=== PATIENT | male | born 1955 | race Caucasian/White ===

== ENCOUNTER 2024-01-07 11:57 | Observation (INO) | payer OTHER ==
[2024-01-03 11:55] LABS: HEMATOCRIT 46.6 % (42-54); MEAN CORPUSCULAR HEMOGLOBIN 34.7 pg (27.0-33.0); MEAN CORPUSCULAR HGB CONC 33.9 g/dL (32.0-36.0); MEAN CORPUSCULAR VOLUME 102.4 fL (79-99); PLATELET COUNT (AUTO) 222 K/uL (130-400); RED BLOOD CELL COUNT(AUTO) 4.55 MIL/uL (4.50-6.20); WHITE BLOOD COUNT (AUTO) 9.2 K/uL (4.8-10.8)
[2024-01-03 12:02] LABS: APPEARANCE,URINE CLOUDY (CLEAR); BILIRUBIN,URINE NEGATIVE (NEGATIVE); COLOR,URINE LIGHT-YELLOW (YELLOW); GLUCOSE, URINE (UA) NEGATIVE (NEGATIVE); KETONES,URINE NEGATIVE (NEGATIVE); LEUKOCYTE ESTERASE ,URINE 500 Leu/uL (NEGATIVE); NITRATE,URINE NEGATIVE (NEGATIVE); OCCULT BLOOD,URINE MODERATE (NEGATIVE); PROTEIN,URINE 30 mg/dL (NEGATIVE); UROBILINOGEN,URINE 0.2 mg/dL (0.2-1.0)
[2024-01-03 12:08] LABS: INR <= 0.93 (0.85-1.15); PROTHROMBIN TIME 10.7 SEC (9.6-11.6)
[2024-01-03 12:09] LABS: PARTIAL THROMBOPLASTIN TIME 41.3 SEC (26.3-35.5)
[2024-01-03 12:17] LABS: ALBUMIN 3.9 g/dL (3.5-5.0); BILIRUBIN,TOTAL 0.5 mg/dL (0.2-1.0); POTASSIUM 3.7 mmol/L (3.5-5.1)
[2024-01-03 12:31] VITALS: BP 154/77; PULSE 79; RESP 19
[2024-01-03 12:32] LABS: ADD UA MICROSCOPIC YES
[2024-01-03 12:56] LABS: BAND NEUTROPHILS % (MANUAL) 1 % (0-2); BASOPHILS % (MANUAL) 1 % (0-2); EOSINOPHILS % (MANUAL) 2 % (1-6); LYMPHOCYTES % (MANUAL) 36 % (22-44); MAN.DIFF COMMENT-IMPRESSION MANUAL DIFFERENTIAL; MONOCYTES % (MANUAL) 6 % (2-9); PLATELET MORPHOLOGY COMMENT ADEQUATE; REACTIVE LYMPHOCYTES 2 % (0-0); SEGMENTED NEUTROPHILS % 52 % (40-70); TOTAL CELLS COUNTED 100
[2024-01-03 13:02] LABS: BACTERIA,URINE Rare /HPF (None Seen); RBC,URINE 26-50 /HPF (0-1); SQUAMOUS EPITHELIAL CELL,UR Rare /HPF (0-2)
[~2024-01-07] VITALS: Ht 167.6 cm; Wt 69.2 kg
[2024-01-07] VITALS (23 sets, daily range): BP systolic 110–185; BP diastolic 51–91; PULSE 62–94; RESP 15–20
[~2024-01-07 11:57] MED LIST: AMLO5TAB4 PO; DIPH-934 PO; ESCI20TA38 PO; MIRT-22 PO; NALT50TA6 PO; SPIR25TA6 PO; THIA100T75 PO; TOPI-97 PO; mvi PO; preservision PO
[2024-01-07] MEDS: ZOSYN 3.375GM+NS 50ML 50 ML ONE (13:00)
[2024-01-07] MEDS ORDERED: ROCURONIUM BROMIDE 10MG/1ML 5ML VL ONE (16:53)
[2024-01-07] MEDS ORDERED: FENTANYL CITRATE PF 50 MCG/1 ML 2ML VIAL ONE ×2 (16:53→16:54)
[2024-01-07] MEDS ORDERED: PROPOFOL 10 MG/ML 20ML VIAL IV ONE ×2 (16:53→17:27)
[2024-01-07] MEDS ORDERED: MIDAZOLAM HCL 1 MG/ML 2ML VIAL ONE (16:53)
[2024-01-07] MEDS ORDERED: IOHEXOL-350 50ML VIAL IV ONE (17:06)
[2024-01-07] MEDS: ZOSYN 3.375GM +NS 50ML IVPB ONE (17:15)
[2024-01-07] MEDS ORDERED: ONDANSETRON 4MG INJ ONE (17:40)
[2024-01-07] MEDS ORDERED: GLYCOPYRROLATE 0.2 MG/ML 5 ML VIAL ONE (17:51)
[2024-01-07] MEDS ORDERED: NEOSTIGMINE METHYLSULFATE 1MG/ML IV ONE (17:52)
[2024-01-07] MEDS: MIDAZOLAM HCL 1 MG/ML 2ML VIAL IVP ONE (18:13)
[2024-01-07] MEDS: ACETAMINOPHEN 1,000 MG/100 ML VIAL IV ONE (18:19)
[2024-01-07] MEDS: MIDAZOLAM HCL 1 MG/ML 2ML VIAL ONE (18:19)
[2024-01-07] MEDS ORDERED: MIDAZOLAM HCL 1 MG/ML 2ML VIAL IVP ONE (18:30)
[2024-01-07] MEDS: MORPHINE 2 MG SYG ONE (18:40)
[2024-01-07] MEDS ORDERED: IBUPROFEN 400 MG TABLET PO PRN (19:30)
[2024-01-07] MEDS ORDERED: ACETAMINOPHEN 325 MG TAB PO PRN (19:30)
[2024-01-07] MEDS ORDERED: ONDANSETRON 4MG INJ IVP PRN (19:30)
[2024-01-07] MEDS: OXYBUTYNIN 5 MG TAB.SR.24H PO ONE (19:39)
[2024-01-07] MEDS: LACTATED RINGERS 1000ML 1,000 ML IV SCH (19:39)
[2024-01-08] MEDS: ZOSYN 3.375GM +NS 50ML IV SCH (00:21)
[2024-01-08 00:40] VITALS: BP 112/58; PULSE 71; RESP 18
[2024-01-08] MEDS: MEPERIDINE-PF 75 MG/ML SYG IM PRN (01:58)
[2024-01-08 04:30] VITALS: BP 122/66; PULSE 66; RESP 18
[2024-01-08 06:03] LABS: HEMATOCRIT 39.2 % (42-54); MEAN CORPUSCULAR HEMOGLOBIN 34.7 pg (27.0-33.0); MEAN CORPUSCULAR HGB CONC 33.4 g/dL (32.0-36.0); MEAN CORPUSCULAR VOLUME 103.7 fL (79-99); RED BLOOD CELL COUNT(AUTO) 3.78 MIL/uL (4.50-6.20); WHITE BLOOD COUNT (AUTO) 10.4 K/uL (4.8-10.8)
[2024-01-08 06:17] LABS: CREATININE 1.1 mg/dL (0.5-1.3); POTASSIUM 3.5 mmol/L (3.5-5.1)
[2024-01-08 08:00] VITALS: BP 125/71; PULSE 72; RESP 16; O2SAT 95
[2024-01-08 12:00] VITALS: BP 110/64; PULSE 77; RESP 18
[2024-01-15] MEDS ORDERED: VIT1CAPS47 PO (12:04)
[2024-01-15] MEDS ORDERED: MULT-1367 PO (12:04)
== END 2024-01-08 15:30 | disposition home or self-care (01) ==
LOC: DAH 11:57 → 4CH 11:58 → DAH 11:58
PROVIDERS: ADMIT Urology; ATTEND Urology
DX: N13.6 Pyonephrosis (principal); B96.5 Pseudomonas (aeruginosa) (mallei) (pseudomallei) as the cause of diseases classified elsewhere; E11.9 Type 2 diabetes mellitus without complications; I10 Essential (primary) hypertension; E03.9 Hypothyroidism, unspecified; G47.00 Insomnia, unspecified; Z87.442 Personal history of urinary calculi; Z93.6 Other artificial openings of urinary tract status; Z79.899 Other long term (current) drug therapy
CPT/HCPCS: 80053; 85025; 85610; 85730; 87088; 81001; 36415 ×2; 74018; 71046; 76100; 93005; 52332; 87077; 87186; 82948; 74420; 96372; 96365; 96366; 80048; 85027; G0378 ×19; A4663; A4344; C2617; C1758 ×3; J3010 ×2; J2270; J3490 ×2; J2250 ×2; J2704 ×2; J2405; J2710; J2543 ×4; Q9967; A4358; C1769 ×2; A4215; A4223 ×2; A4222; A4221; A4600; J2175

== ENCOUNTER 2024-01-21 09:27 | Observation (INO) | payer OTHER ==
[2024-01-15 11:46] LABS: HEMATOCRIT 45.6 % (42-54); MEAN CORPUSCULAR HEMOGLOBIN 34.8 pg (27.0-33.0); MEAN CORPUSCULAR HGB CONC 33.6 g/dL (32.0-36.0); MEAN CORPUSCULAR VOLUME 103.6 fL (79-99); RED BLOOD CELL COUNT(AUTO) 4.4 MIL/uL (4.50-6.20); RED CELL DISTRIBUTION WIDTH 13.2 % (11.0-15.5); WHITE BLOOD COUNT (AUTO) 9.5 K/uL (4.8-10.8)
[2024-01-15 11:56] VITALS: BP 145/71; PULSE 80; RESP 18
[2024-01-15 11:57] LABS: INR <= 0.93 (0.85-1.15); PROTHROMBIN TIME 10.9 SEC (9.6-11.6)
[2024-01-15 11:59] LABS: APPEARANCE,URINE TURBID (CLEAR); BILIRUBIN,URINE SMALL mg/dL (NEGATIVE); COLOR,URINE RED (YELLOW); GLUCOSE, URINE (UA) NEGATIVE (NEGATIVE); KETONES,URINE 5 mg/dL (NEGATIVE); LEUKOCYTE ESTERASE ,URINE MODERATE Leu/uL (NEGATIVE); NITRATE,URINE NEGATIVE (NEGATIVE); OCCULT BLOOD,URINE LARGE (NEGATIVE); PH,URINE 6.5 (5.0-8.0); PROTEIN,URINE >=300 mg/dL (NEGATIVE)
[2024-01-15 11:59] LABS: PARTIAL THROMBOPLASTIN TIME 35.2 SEC (26.3-35.5)
[2024-01-15 12:04] LABS: ADD UA MICROSCOPIC YES
[2024-01-15 12:07] LABS: ALBUMIN 3.7 g/dL (3.5-5.0); BILIRUBIN,TOTAL 0.4 mg/dL (0.2-1.0); CREATININE 1.1 mg/dL (0.5-1.3); POTASSIUM 3.7 mmol/L (3.5-5.1); TOTAL PROTEIN, SERUM 8.1 g/dL (6.0-8.3)
[2024-01-15 12:07] LABS: BACTERIA,URINE Rare /HPF (None Seen); RBC,URINE TNTC /HPF (0-1); SQUAMOUS EPITHELIAL CELL,UR Rare /HPF (0-2); WBC,URINE F /HPF (0-1)
[2024-01-21] VITALS (27 sets, daily range): BP systolic 101–170; BP diastolic 50–123; PULSE 61–93; RESP 12–22; O2SAT 95–100
[~2024-01-21] VITALS: Ht 165.1 cm; Wt 70.3 kg
[~2024-01-21 09:27] MED LIST changes: +MULT-1367 PO; +VIT1CAPS47 PO; -mvi PO; -preservision PO
[2024-01-21] MEDS: LACTATED RINGERS 1000ML 1,000 ML IV ONE (09:47)
[2024-01-21] MEDS: ZOSYN 3.375GM+NS 50ML 50 ML ONE (09:47)
[2024-01-21] MEDS ORDERED: FENTANYL CITRATE PF 50 MCG/1 ML 2ML VIAL ONE (12:51)
[2024-01-21] MEDS ORDERED: MIDAZOLAM HCL 1 MG/ML 2ML VIAL ONE (12:51)
[2024-01-21] MEDS ORDERED: ROCURONIUM BROMIDE 10MG/1ML 5ML VL ONE (12:51)
[2024-01-21] MEDS ORDERED: PROPOFOL 10 MG/ML 20ML VIAL IV ONE (12:51)
[2024-01-21] MEDS ORDERED: IOHEXOL-350 50ML VIAL IV ONE (14:08)
[2024-01-21] MEDS ORDERED: GLYCOPYRROLATE 0.2 MG/ML 5 ML VIAL ONE (14:13)
[2024-01-21] MEDS ORDERED: NEOSTIGMINE METHYLSULFATE 1MG/ML IV ONE (14:13)
[2024-01-21] MEDS: IPRATROPIUM/ALBUTEROL SULFATE 3 ML SOLUTION IH ONE ×2 (14:38)
[2024-01-21] MEDS ORDERED: IPRATROPIUM/ALBUTEROL SULFATE 3 ML SOLUTION IH PRN (16:00)
[2024-01-21] MEDS ORDERED: ACETAMINOPHEN WITH CODEINE 1 TAB TAB PO PRN (17:30)
[2024-01-21] MEDS ORDERED: ONDANSETRON 4MG INJ IVP PRN (17:30)
[2024-01-21] MEDS ORDERED: ACETAMINOPHEN 325 MG TAB PO PRN (17:30)
[2024-01-21] MEDS: NICOTINE 14 MG/ 24 HR PATCH TD SCH (17:40)
[2024-01-21] MEDS: LACTATED RINGERS 1000ML 1,000 ML IV SCH (17:41)
[2024-01-21] MEDS: MEPERIDINE-PF 75 MG/ML SYG IM PRN (17:42)
[2024-01-21] MEDS: ZOSYN 3.375GM +NS 50ML IVPB SCH (20:59)
[2024-01-21] MEDS: TOPIRAMATE 25 MG TABLET PO SCH (20:59)
[2024-01-21] MEDS: MIRTAZAPINE 15 MG TABLET PO SCH (20:59)
[2024-01-21] MEDS ORDERED: 0.9%NACL 50ML IV SCH (21:00)
[2024-01-21] MEDS ORDERED: NON-FORMULARY MEDICATION 1 EACH (Topiramate 50 MG) PO SCH (21:00)
[2024-01-22] VITALS: BP 107/58; PULSE 73; RESP 18
[2024-01-22 04:00] VITALS: BP 124/66; PULSE 61; RESP 18
[2024-01-22 04:32] LABS: BASOPHILS # (AUTO) 0.06 K/uL (0.00-0.20); BASOPHILS % (AUTO) 0.6 % (0.0-5.0); EOSINOPHILS # (AUTO) 0.47 K/uL (0.00-0.70); EOSINOPHILS % (AUTO) 4.8 % (0.0-8.0); HEMATOCRIT 36.1 % (42-54); IMMATURE GRANULOCYTE ABSOLUTE 0.02 K/uL (0-1); LYMPHOCYTES # (AUTO) 2.9 K/uL (1.0-4.8); LYMPHOCYTES % (AUTO) 30.2 % (21.0-51.0); MEAN CORPUSCULAR HEMOGLOBIN 34.8 pg (27.0-33.0); MEAN CORPUSCULAR HGB CONC 33.8 g/dL (32.0-36.0); MEAN CORPUSCULAR VOLUME 102.8 fL (79-99); MONOCYTES # (AUTO) 0.7 K/uL (0.1-1.0); MONOCYTES % (AUTO) 7.1 % (3.0-13.0); NEUTROPHILS # (AUTO) 5.6 K/uL (1.8-7.7); NEUTROPHILS % (AUTO) 57.1 % (40.0-77.0); PLATELET COUNT (AUTO) 211 K/uL (130-400); RED BLOOD CELL COUNT(AUTO) 3.51 MIL/uL (4.50-6.20); RED CELL DISTRIBUTION WIDTH 13.3 % (11.0-15.5); WHITE BLOOD COUNT (AUTO) 9.8 K/uL (4.8-10.8)
[2024-01-22 04:48] LABS: POTASSIUM 3.3 mmol/L (3.5-5.1)
[2024-01-22 06:33] VITALS: PULSE 69; RESP 18; O2SAT 97
[2024-01-22 07:00] VITALS: BP 133/73; PULSE 72; RESP 20
[2024-01-22 08:00] VITALS: O2SAT 95
[2024-01-22] MEDS ORDERED: NON-FORMULARY MEDICATION 1 EACH (Multivitamin 1 EACH) PO SCH (09:00)
[2024-01-22] MEDS ORDERED: NON-FORMULARY MEDICATION 1 EACH (Escitalopram Oxalate 20 MG) PO SCH (09:00)
[2024-01-22] MEDS ORDERED: THIAMINE MONONITRATE 100 MG PO SCH (09:00)
[2024-01-22] MEDS: SPIRONOLACTONE 25 MG TAB PO SCH (09:38)
[2024-01-22] MEDS: DIPHENHYDRAMINE HCL 25 MG CAPSULE PO SCH (09:38)
[2024-01-22] MEDS: MULTIVITAMIN TABLET PO SCH (09:39)
[2024-01-22] MEDS: THIAMINE HCL 100 MG TABLET PO SCH (09:39)
[2024-01-22] MEDS: AMLODIPINE 5 MG TAB PO SCH (09:39)
[2024-01-22] MEDS: CITALOPRAM 20 MG TABLET PO SCH (09:43)
[2024-01-22 12:03] VITALS: BP 155/74; PULSE 72; RESP 17
== END 2024-01-22 15:50 | disposition home or self-care (01) ==
LOC: DAH 09:27 → DAHIP 09:28 → DAH 14:28 → DAHIP 14:29 → 4CH 15:50
PROVIDERS: ADMIT Urology; ATTEND Urology
DX: N20.2 Calculus of kidney with calculus of ureter (principal); I10 Essential (primary) hypertension; E03.9 Hypothyroidism, unspecified; N32.3 Diverticulum of bladder; N40.0 Benign prostatic hyperplasia without lower urinary tract symptoms; F32.9 Major depressive disorder, single episode, unspecified; G47.00 Insomnia, unspecified; Z79.899 Other long term (current) drug therapy; Z98.890 Other specified postprocedural states; Z86.2 Personal history of diseases of the blood and blood-forming organs and certain disorders involving the immune mechanism
CPT/HCPCS: 80053; 85027; 85610; 85730; 87088; 81001; 36415 ×3; 74018; 76100; 93005; 52356; 96372 ×2; 96365; 82360; 74420; 94640; 96366; 80048; 85025; A6260; G0378 ×23; C2617; A4354; J7120; J3010; J3490 ×2; J2250; J2704; J2710; J2543 ×3; J2175 ×3; Q9967; A4358; A4215; A4223; A4222; A4221; A4663; A4600; Q0163